=== PATIENT | male | born 1980 | race Caucasian/White ===

== ENCOUNTER 2017-02-28 10:14 | Inpatient (IN) | payer OTHER ==
[~2017-02-28] VITALS: Ht 177.8 cm; Wt 70.3 kg
[2017-03-02 11:30] VITALS: BP 135/82
--- NOTE | 2017-03-02 11:30 | NUR ---
Pre-admission Note: Client is seen in intake at this time. Alert and verbally responsive. Able to make his needs known. Appears restless and fidgety. Oriented x 4. Noted with good eye contact. Noted to be hyperverbal. Denies any seizure history. Denies any allergies. Denies any past medical hx. Wishes to be FULL CODE. Follows a regular diet at home. Client states that he is here to detox from "speed and heroin." VS as ff: BP 135/82, Pulse 95, RR 18, Temp 98.1, O2 sat 99% via RA, PL 0/10. COWS 6 noted with restlessness, moderate anxiety and moist eyes. Educated patient on the admission process and he verbalized understanding. Able to provide consent for the admission.
--- NOTE | 2017-03-02 11:39 | NUR ---
Admission Note: Admitted at 36 year old male who states that he is here to detox off of Methamphetamine and Heroin under the care of Dr. Donavon Solorzano. He is alert and verbally responsive. Oriented x 4. No changes in LOC noted from baseline. Respirations even and unlabored. No SOB noted. Skin warm and moist to touch. Body search done. No contraband was found. Skin check done. No skin breakdown noted. Abdomen soft and non-distended. Reports his LBM was on 03/01/2017. Voids independently. Bladder non-distended. Able to provide urine for UDS. Ambulatory ad katy with steady gait. NKA. Wishes to be full code. Follows a regular diet at home. Patient denies any seizure history. Denies any medical hx. Patient states that he does not remember the name of his PCP. His longest period of sobriety was 4 years which started on 2012. Patient appears restless, anxious, teary at this time. Orientation to the unit provided. Educated patient on the unit's policy and procedures. Substance Use: 1. Heroin - since 21 years old. Injects "3cc" x 3-4 days in 30 days. Last use was on 03/01/2017 "3cc" at 2000. 2. Methamphetamine - since 21 years old. Injects 2 grams for 3 to 4 days x 30 days. Last use was on 03/01/2017 at 1700. 3. Marijuana - since 15 years old. Smokes "1 hit" x 3 days x 30 days. Last use was on 03/01/2017 Dr. Solorzano in the unit. Provided report for the patient and seen and examined the patient at this time. Will continue to monitor throughout the day and encouraged rest and oral fluid intake.
[2017-03-02 12:00] VITALS: BP 137/88
[2017-03-02] MEDS ORDERED: METHOCARBAMOL 750 MG TABLET PO PRN (12:30)
[2017-03-02] MEDS ORDERED: NICOTINE POLACRILEX 4 MG GUM-PK OF TEN BC PRN (12:30)
[2017-03-02] MEDS ORDERED: MAGNESIUM HYDROXIDE 30 ML LIQUID UDC PO PRN (12:30)
[2017-03-02] MEDS ORDERED: IBUPROFEN 600 MG TABLET PO PRN (12:30)
[2017-03-02] MEDS ORDERED: NICOTINE 14 MG/24HR PATCH TD PRN (12:30)
[2017-03-02] MEDS ORDERED: diphenhydrAMINE 50 MG CAPSULE PO PRN (12:30)
[2017-03-02] MEDS ORDERED: ONDANSETRON 4 MG/2 ML VIAL IM PRN (12:30)
[2017-03-02] MEDS ORDERED: ACETAMINOPHEN 325 MG TABLET PO PRN (12:30)
[2017-03-02] MEDS ORDERED: ONDANSETRON ODT 4 MG TAB.RAPDIS SL PRN (12:30)
[2017-03-02] MEDS ORDERED: HYDROXYZINE PAMOATE 25 MG CAPSULE PO PRN (12:30)
[2017-03-02] MEDS ORDERED: LOPERAMIDE HCL 2 MG CAPSULE PO PRN ×2 (12:30)
[2017-03-02] MEDS ORDERED: MIRALAX 17 GM POWD.PACK PO PRN (12:30)
[2017-03-02] MEDS ORDERED: MAG HYDROX/AL HYDROX/SIMETH 30 ML LIQUID UDC PO PRN (12:30)
[2017-03-02] MEDS ORDERED: DICYCLOMINE HCL 20 MG TABLET PO PRN (12:30)
[2017-03-02 13:27] LABS: ETHANOL < 3 MG/DL (0-0)
[2017-03-02 13:31] LABS: ALANINE AMINOTRANSFERASE 148 U/L (16-63); ALKALINE PHOSPHATASE 82 U/L (50-136); ASPARTATE AMINOTRANSFERASE 195 U/L (15-37); BILIRUBIN,TOTAL 0.5 mg/dL (0.2-1.0); CARBON DIOXIDE 28 mmol/L (21-32); CHLORIDE 101 mmol/L (98-107); CREATININE 1.3 mg/dL (0.6-1.3); GLUCOSE 103 mg/dL (74-106); MAGNESIUM 2.1 mg/dL (1.8-2.4); POTASSIUM 4.2 mmol/L (3.5-5.1); TOTAL PROTEIN, SERUM 7.3 g/dL (6.4-8.2); UREA NITROGEN, BLOOD 17 mg/dL (7-18)
[2017-03-02 13:33] LABS: BASOPHILS # (AUTO) 0.1 K/uL (0.0-8.0); BASOPHILS % (AUTO) 0.6 % (0.0-2.0); EOSINOPHILS # (AUTO) 0.6 K/uL (0.0-0.7); EOSINOPHILS % (AUTO) 5.5 % (0.0-7.0); HEMATOCRIT 51.1 % (40-50); HEMOGLOBIN 16.9 G/DL (14.0-18.0); LYMPHOCYTES # (AUTO) 1.5 K/UL (0.8-4.8); LYMPHOCYTES % (AUTO) 14.7 % (20.5-51.5); MEAN CORPUSCULAR HEMOGLOBIN 30.3 UUG (27.0-31.0); MEAN CORPUSCULAR HGB CONC 33 g/dL (32.0-37.0); MEAN CORPUSCULAR VOLUME 91.5 FL (82.0-92.0); MONOCYTES # (AUTO) 0.7 K/UL (0.1-1.30); MONOCYTES % (AUTO) 7.1 % (0.0-11.0); NEUTROPHILS # (AUTO) 7.2 K/UL (1.8-8.9); NEUTROPHILS % (AUTO) 72.1 % (38.5-71.5); PLATELET COUNT (AUTO) 289 K/UL (150-450); RED BLOOD CELL COUNT(AUTO) 5.59 MIL/UL (4.7-6.1); WHITE BLOOD COUNT (AUTO) 10.1 K/UL (4.0-11.2)
[2017-03-02 13:49] LABS: *AMPHETAMINE, URINE POSITIVE (NEGATIVE); *BARBITURATE, URINE NEGATIVE (NEGATIVE); *CANNABINOID, URINE POSITIVE (NEGATIVE); *COCCAINE, URINE NEGATIVE (NEGATIVE); *OPIATE, URINE POSITIVE (NEGATIVE); *PHENCYCLIDINE SCREEN,URINE NEGATIVE (NEGATIVE)
[2017-03-02] MEDS ORDERED: BENZONATATE 100 MG CAPSULE PO PRN (15:00)
[2017-03-02 16:00] VITALS: BP 136/82
--- NOTE | 2017-03-02 17:17 | NUR ---
Tessalon Perles given: Patient noted with productive cough. Lung sounds clear. PRN Tessalon Perles given as ordered. Will monitor for effectiveness.
[2017-03-02] MEDS: CLONIDINE HCL 0.1 MG TABLET PO PRN (18:40)
--- NOTE | 2017-03-02 18:40 | NUR ---
Clonidine 0.1mg PO given: Patient noted with anxiety and agitation. BP WNL. Medicated patient with Clonidine 0.1mg PO as ordered. Will monitor for effectiveness.
--- NOTE | 2017-03-02 19:02 | NUR ---
End of Shift Notes: Patient admitted today and is on close monitoring for s/s of opiate withdrawal. Patient's VS monitored closely. No significant abnormalities noted. Patient still appears to be acutely intoxicated from methamphetamine. COWS 5, due to restlessness and fidgeting. Patient slept for most of the shift. Last COWS 5. Medicated patient with Tessalon Perles for cough with help. At 1840, patient noted with complain of anxiety. Medicated patient with Clonidine 0.1mg PO as ordered. Results pending. All needs met and attended. Will continue to monitor closely.
--- NOTE | 2017-03-02 19:15 | NUR ---
START OF SHIFT Received 36 year old admitted on 03/02/17 for Methamphetamine and Heroin dependency. Pt is full code with NKA. He denies any history of seizures. He reports using Methamphetamine IV 2 grams every 3-4 days for 30 days. Last dose was 2 grams on 03/01/17 at 1700. And Heroin 3 mL x3 days. Last dose was "3cc" on 03/01/17 at 2000. He is not placed on a taper but has PRN medications available. Pt is alert and oriented x4. Breathing is even and unlabored. Safety measures in place. Will continue to monitor.
[2017-03-02] MEDS ORDERED: METH-406 PO (19:20)
[2017-03-02] MEDS ORDERED: CLON0.1T14 PO (19:20)
[2017-03-02] MEDS ORDERED: DICY20TA28 PO (19:20)
[2017-03-02] MEDS ORDERED: IBUP-1955 PO (19:20)
[2017-03-02] MEDS ORDERED: HYDR-3895 PO (19:20)
[2017-03-02] MEDS ORDERED: DIPH50CA37 PO (19:20)
--- NOTE | 2017-03-02 19:40 | NUR ---
CLONIDINE REASSESSMENT PRN medication effective. Pt reports a decrease in anxiety and is lying comfortably in bed. Will continue to monitor.
[2017-03-02 20:00] VITALS: BP 150/80
--- NOTE | 2017-03-03 | NUR ---
VITALS REFUSED, COWS DEFERRED Vitals refused. COWS deferred d/t pt lying in bed with eyes closed noted to be asleep. Breathing even and unlabored. Safety measures in place. Will monitor.
[2017-03-03 04:00] VITALS: BP 130/82
--- NOTE | 2017-03-03 04:00 | NUR ---
COWS DEFERRED Pt lying in bed with eyes closed noted to be asleep. Breathing even and unlabored. Safety measures in place. Will monitor.
[2017-03-03 05:06] LABS: HEPATITIS B SURFACE AG Negative (Negative)
--- NOTE | 2017-03-03 07:13 | NUR ---
END OF SHIFT Pt is a 36 year old admitted on 03/02/17 for Methamphetamine and Heroin dependency. Pt is full code with NKA. He denies any history of seizures. He is not placed on a taper but has PRN medications available. He did not receive or request PRN medications. He slept a total of 9hrs, Intake: 1,000mL Void: x2, BM:1, COWS:5. He is scheduled to be DC today. Pt remains alert and oriented x4. Breathing is even and unlabored. Safety measures in place. Endorsed to AM shift.
--- NOTE | 2017-03-03 07:30 | NUR ---
start of shift note: received pt from operation shift supervisor nurse, pt is in stable condition no s/s of pain or discomfort. pt is admitted to [facility] for meth/heroin dependence/withdrawal. pts last cows is 5. pt is set for discharge.pt is anxious about discharge but is medically cleared and stable. will assist pt in discharging and will continue to monitor pt for any changes
[2017-03-03 08:06] VITALS: BP 138/89
[2017-03-03] MEDS: CLONIDINE HCL 0.1 MG TABLET PO PRN (08:06)
[2017-03-03] MEDS ORDERED: TUBERCULIN,PURIF.PROT.DERIV. 5 TU/0.1 ML TEST ID ONE (09:00)
--- NOTE | 2017-03-03 09:30 | NUR ---
discharge note: pt left the unit in stable condition no s/s of pain or discomfort or any withdrawal symptoms. pt teaching administered and pt verbalized understanding. pt's V/S WNL. pt's personal belongings were returned. pt will be transported home via own transportation
== END 2017-03-03 08:20 | disposition home or self-care (01) | DRG 897 ==
LOC: SRC 03-02 11:13
PROVIDERS: ADMIT Internal Medicine; ATTEND Internal Medicine
PROC: HZ2ZZZZ Detoxification Services for Substance Abuse Treatment (ICD-10-PCS; principal; 2017-03-02)
DX: F15.23 Other stimulant dependence with withdrawal (principal); F11.10 Opioid abuse, uncomplicated; F10.10 Alcohol abuse, uncomplicated; F17.210 Nicotine dependence, cigarettes, uncomplicated; Z80.9 Family history of malignant neoplasm, unspecified; Z81.1 Family history of alcohol abuse and dependence; Y90.9 Presence of alcohol in blood, level not specified; F12.90 Cannabis use, unspecified, uncomplicated
CPT/HCPCS: 36415; 80307; 80324; 80349; 80361; 83735; 85025; 86592; 86705; 86803; 87340; 87806; G0480